=== PATIENT | female | born 1965 | race Hispanic/Latino ===

== ENCOUNTER 2016-10-14 06:09 | Day surgery (SDC) | payer BC ==
[~2016-10-14] VITALS: Ht 157.5 cm; Wt 70.8 kg
[~2016-10-14 06:09] MED LIST: OMEGA 3340 MG PO; PRILOSEC20 MG/CAP PO
[2016-10-14] MEDS ORDERED: SYSTANE OD (06:36)
[2016-10-14 09:19] VITALS: BP 95/51
== END 2016-10-14 09:25 | disposition home or self-care (01) | DRG 392 ==
LOC: ENDO 06:09 → ORM 08:30 → ENDO 08:30
PROVIDERS: ATTEND Surgery
PROC: 0DB78ZX Excision of Stomach, Pylorus, Via Natural or Artificial Opening Endoscopic, Diagnostic (ICD-10-PCS; principal; 2016-10-14)
PROC: 0DJD8ZZ Inspection of Lower Intestinal Tract, Via Natural or Artificial Opening Endoscopic (ICD-10-PCS; 2016-10-14)
DX: K21.9 Gastro-esophageal reflux disease without esophagitis (principal); E78.5 Hyperlipidemia, unspecified; Z12.11 Encounter for screening for malignant neoplasm of colon; K29.50 Unspecified chronic gastritis without bleeding; K44.9 Diaphragmatic hernia without obstruction or gangrene